=== PATIENT | male | born 1990 | race African-American/Black ===

== ENCOUNTER 2022-09-21 19:29 | Inpatient (IN) | payer OTHER ==
[2022-09-21 20:21] VITALS: BMI 29.2
[2022-09-21] MEDS ORDERED: METHOCARBAMOL 500 MG TABLET PO PRN (20:47)
[2022-09-21] MEDS ORDERED: MAGNESIUM HYDROX 2400MG/30ML ORAL SUSPENSION 30 ML CUP PO PRN (20:47)
[2022-09-21] MEDS ORDERED: ONDANSETRON *ODT* 4 MG TABLET SL PRN (20:47)
[2022-09-21] MEDS ORDERED: IBUPROFEN 600 MG TABLET (FP) PO PRN (20:47)
[2022-09-21] MEDS ORDERED: NALOXONE HCL (KLOXXADO) 8 MG SPRAY NS PRN (20:47)
[2022-09-21] MEDS ORDERED: DICYCLOMINE HCL 10 MG CAPSULE PO PRN (20:47)
[2022-09-21] MEDS ORDERED: POLYETHYLENE GLYCOL (HEALTHYLAX) 3350 17 GM PACKET PO PRN (20:47)
[2022-09-21] MEDS ORDERED: ACETAMINOPHEN 325 MG TABLET (FP) PO PRN ×2 (20:47)
[2022-09-21] MEDS ORDERED: hydrOXYzine PAMOATE 25 MG CAPSULE (FP) PO PRN (20:47)
[2022-09-21] MEDS ORDERED: MAG HYDROX/AL HYDROX/SIMETH 30 ML UNIT-DOSE CUP PO PRN (20:47)
[2022-09-21] MEDS ORDERED: BISMUTH SUBSALICYLATE 524 MG/30 ML PO PRN (20:47)
[2022-09-21] MEDS ORDERED: IBUPROFEN 400 MG TABLET (FP) PO PRN (20:47)
[2022-09-21] MEDS ORDERED: LOPERAMIDE HCL 2 MG CAPSULE PO PRN (20:47)
[2022-09-21] MEDS ORDERED: BENZOCAINE/MENTHOL (CHLORASEPTIC ) LOZENGE MM PRN (20:47)
[2022-09-21] MEDS ORDERED: chlordiazePOXIDE HCL 25 MG CAPSULE PO PRN (20:53)
[2022-09-21] MEDS ORDERED: THIAMINE HCL 100 MG TABLET (FP) PO SCH (22:00)
[2022-09-21] MEDS ORDERED: MELATONIN 5 MG TABLETS PO SCH (22:00)
[2022-09-21 22:18] VITALS: BP 145/93; PULSE 135; RESP 16; TEMP 97.8
[2022-09-21] MEDS ORDERED: chlordiazePOXIDE HCL 25 MG CAPSULE PO SCH (23:00)
[2022-09-22] MEDS ORDERED: PRENATAL VITAMINS W/ FOLIC ACID TABLET (FP) PO SCH (10:00)
[2022-09-23] MEDS ORDERED: chlordiazePOXIDE HCL 25 MG CAPSULE PO SCH (05:00)
[2022-09-24] MEDS ORDERED: chlordiazePOXIDE HCL 10 MG CAPSULE PO PRN
[2022-09-24] MEDS ORDERED: chlordiazePOXIDE HCL 10 MG CAPSULE PO SCH (05:00)
[2022-09-25] MEDS ORDERED: chlordiazePOXIDE HCL 10 MG CAPSULE PO SCH (05:00)
[2022-09-26] MEDS ORDERED: chlordiazePOXIDE HCL 10 MG CAPSULE PO ONE (05:00)
== END 2022-09-21 23:26 | disposition left against medical advice (07) | DRG 894 ==
LOC: YASAS 19:29 → Y6N 20:44
PROVIDERS: ADMIT Allergy & Immunology; ATTEND Surgery
PROC: HZ2ZZZZ Detoxification Services for Substance Abuse Treatment (ICD-10-PCS; principal; 2022-09-21)
DX: F10.230 Alcohol dependence with withdrawal, uncomplicated (principal); Z88.0 Allergy status to penicillin
CPT/HCPCS: C9803-CS; U0003; U0005

== ENCOUNTER 2023-04-23 10:08 | Inpatient (IN) | payer OTHER ==
[2023-04-23 11:48] VITALS: BMI 29.5
[2023-04-23] MEDS ORDERED: BISMUTH SUBSALICYLATE 524 MG/30 ML PO PRN (14:14)
[2023-04-23] MEDS ORDERED: NALOXONE HCL (KLOXXADO) 8 MG SPRAY NS PRN (14:14)
[2023-04-23] MEDS ORDERED: METHOCARBAMOL 500 MG TABLET PO PRN (14:14)
[2023-04-23] MEDS ORDERED: POLYETHYLENE GLYCOL (HEALTHYLAX) 3350 17 GM PACKET PO PRN (14:14)
[2023-04-23] MEDS ORDERED: ONDANSETRON *ODT* 4 MG TABLET SL PRN (14:14)
[2023-04-23] MEDS ORDERED: LOPERAMIDE HCL 2 MG CAPSULE PO PRN (14:14)
[2023-04-23] MEDS ORDERED: IBUPROFEN 600 MG TABLET (FP) PO PRN (14:14)
[2023-04-23] MEDS ORDERED: BENZOCAINE/MENTHOL (CHLORASEPTIC ) LOZENGE MM PRN (14:14)
[2023-04-23] MEDS ORDERED: ACETAMINOPHEN 325 MG TABLET (FP) PO PRN (14:14)
[2023-04-23] MEDS ORDERED: MAGNESIUM HYDROX 2400MG/30ML ORAL SUSPENSION 30 ML CUP PO PRN (14:14)
[2023-04-23] MEDS ORDERED: NALOXONE HCL 0.4 MG/ML VIAL IM PRN (14:14)
[2023-04-23] MEDS ORDERED: BENZONATATE 200 MG CAPSULE PO PRN (14:14)
[2023-04-23] MEDS ORDERED: IBUPROFEN 400 MG TABLET (FP) PO PRN (14:14)
[2023-04-23] MEDS ORDERED: guaiFENesin 600 MG TABLET.ER (FP) PO PRN (14:14)
[2023-04-23] MEDS ORDERED: DICYCLOMINE HCL 10 MG CAPSULE PO PRN (14:14)
[2023-04-23] MEDS ORDERED: MAG HYDROX/AL HYDROX/SIMETH 30 ML UNIT-DOSE CUP PO PRN (14:14)
[2023-04-23] MEDS: hydrOXYzine PAMOATE 25 MG CAPSULE (FP) PO PRN ×2 (18:29→23:57)
[2023-04-23] MEDS ORDERED: MELATONIN 5 MG TABLETS PO SCH (22:00)
[2023-04-23] MEDS ORDERED: THIAMINE HCL 100 MG TABLET (FP) PO SCH (22:00)
[2023-04-24 09:06] VITALS: BP 136/87; PULSE 74; RESP 18; TEMP 97.7
[2023-04-24 09:14] LABS: HEMATOCRIT 41.4 % (35.4-49); HEMOGLOBIN 12.9 GM/dL (11.7-16.9); MCH 24.1 pg (25.7-33.7); MCHC 31.2 g/dl (32.0-35.9); MEAN CELL VOLUME 77.2 fl (80-96); MEAN PLT VOLUME 8.8 fl (7.5-11.1); PLATELET COUNT 157 10^3/uL (134-434); RBC 5.36 M/mm3 (4.00-5.60); RDW 16.9 % (11.9-15.9); WHITE BLOOD COUNT 4.2 K/mm3 (4.0-10.0)
[2023-04-24 09:20] LABS: POTASSIUM 3.7 mmol/L (3.5-5.1)
[2023-04-24 09:38] LABS: ALBUMIN 4.1 g/dl (3.4-5.0); BLOOD UREA NITROGEN 9.9 mg/dL (7-18); CALCIUM 9.5 mg/dL (8.5-10.1)
[2023-04-24 09:41] LABS: CREATININE 0.9 mg/dL (0.55-1.3)
[2023-04-24 09:43] LABS: BILIRUBIN,TOTAL 1.7 mg/dL (0.2-1); TOT PROT 7.1 g/dl (6.4-8.2)
[2023-04-24] MEDS ORDERED: PRENATAL VITAMINS W/ FOLIC ACID TABLET (FP) PO SCH (10:00)
== END 2023-04-24 11:30 | disposition home or self-care (01) | DRG 897 ==
LOC: YASAS 10:08 → Y3N 14:05
PROVIDERS: ADMIT Allergy & Immunology; ATTEND Surgery
PROC: HZ2ZZZZ Detoxification Services for Substance Abuse Treatment (ICD-10-PCS; principal; 2023-04-23)
DX: F10.230 Alcohol dependence with withdrawal, uncomplicated (principal)
CPT/HCPCS: 36415; 80053; 85027; 86780; 87635